=== PATIENT | female | born 1990 | race Hispanic/Latino ===

== ENCOUNTER 2017-09-15 23:07 | Inpatient (IN) | payer MEDICAID, OTHER ==
[2017-09-15 23:07] VITALS: BMI 27.4
[2017-09-16 00:12] LABS: BASO % 0.7 % (0.0-2.0); EOS # 0.4 K/uL (0.0-0.7); EOS % 5.7 % (0.0-4.0); HEMATOCRIT 42.3 % (34.0-47.0); LYMPH # 3.3 K/uL (1.0-4.3); MEAN CELL VOLUME 90.7 fL (81.0-99.0); MEAN CORPUSCULAR HEMOGLOBIN 30.2 pg (27.0-31.0); MEAN CORPUSCULAR HGB CONC 33.3 g/dL (33.0-37.0); MEAN PLATELET VOLUME 8.4 fL (7.2-11.7); MONO # 0.4 K/uL (0.0-0.8); MONO % 6.4 % (0.0-10.0); NRBC % 0.1 % (0.0-2.0); WHITE BLOOD COUNT 6.9 K/uL (4.8-10.8)
[2017-09-16 00:17] LABS: RBC URINE < 1 /hpf (0-3); URINE BILIRUBIN NEGATIVE (NEGATIVE); URINE BLOOD NEGATIVE (NEGATIVE); URINE COLOR Yellow (YELLOW); URINE GLUCOSE (UA) NORMAL (Normal); URINE KETONE NEGATIVE (NEGATIVE); URINE LEUKOCYTE ESTERASE NEG Leu/uL (Negative); URINE PROTEIN NEGATIVE (NEGATIVE); WBC URINE < 1 /hpf (0-5)
[2017-09-16 00:27] LABS: ALB/GLOB RATIO 1.4 (1.0-2.1); ALCOHOL SERUM < 10 mg/dl (0-10); ALKALINE PHOSPHATASE 77 U/L (38-126); ALT/SGPT 37 U/L (9-52); AST/SGOT 23 U/L (14-36); BILIRUBIN,TOTAL 0.6 mg/dL (0.2-1.3); BLOOD UREA NITROGEN 11 mg/dL (7-17); CALCIUM 8.9 mg/dl (8.6-10.4); CARBON DIOXIDE 24 mmol/L (22-30); CHLORIDE 105 mmol/L (98-107); GFR AFRICAN-AMERICAN > 60; GLUCOSE,RANDOM 80 mg/dL (65-105); POTASSIUM 3.9 mmol/L (3.6-5.2); SODIUM 141 mmol/L (132-148); TOTAL PROTEIN 7.5 g/dL (6.3-8.3)
--- NOTE | 2017-09-16 00:35 | C.PDOC ---
History Of Present Illness Pt is here requesting detox from Heroin and Xanax. Time Seen by Provider: 09/15/17 23:31 Chief Complaint (Nursing): Substance Abuse History Per: Patient Onset/Duration Of Symptoms: Days Current Symptoms Are (Timing): Still Present Suicide/Self Injury Attempted (Context): None Modifying Factor(s): Narcotics Severity: Moderate Associated Symptoms: denies: Suicidal Thoughts, Suicidal Plan Additional History Per: Prior Records Past Medical History Reviewed: Historical Data, Nursing Documentation, Vital Signs Vital Signs: Last Vital Signs Temp 97.9 F 09/15/17 23:26 Pulse 76 09/15/17 23:26 Resp 14 09/15/17 23:26 BP 107/74 09/15/17 23:26 Pulse Ox 97 09/16/17 00:47 - Medical History PMH: Anxiety, Seizures (withdrawal) - [facility] Procedures CLOSURE SKIN & SUBCUTANEOUS NEC (08/27/06) INJECT/INFUSE NEC (02/01/15) Family History: States: Unknown Family Hx - Social History Hx Tobacco Use: No Hx Alcohol Use: No Hx Substance Use: Yes (Xanax. Snorts Heroin.) - Immunization History Hx Tetanus Toxoid Vaccination: Yes Hx Influenza Vaccination: Yes Hx Pneumococcal Vaccination: Yes Review Of Systems Except As Marked, All Systems Reviewed And Found Negative. Constitutional: Negative for: Fever, Weakness Cardiovascular: Negative for: Chest Pain Respiratory: Negative for: Shortness of Breath Gastrointestinal: Negative for: Vomiting, Abdominal Pain Musculoskeletal: Negative for: Neck Pain Skin: Negative for: Rash Neurological: Negative for: Weakness, Numbness, Seizures Physical Exam - Physical Exam Appears: Non-toxic, No Acute Distress Skin: Normal Color, Warm, Dry, No Rash Head: Atraumatic, Normacephalic Eye(s): bilateral: PERRL, EOMI Neck: Normal ROM, Supple Cardiovascular: Rhythm Regular Respiratory: Normal Breath Sounds, No Accessory Muscle Use Gastrointestinal/Abdominal: Soft, No Tenderness Extremity: Normal ROM Neurological/Psych: Oriented x3, Normal Motor, Normal Sensation ED Course And Treatment - Laboratory Results Result Diagrams: 09/16/17 00:09 09/16/17 00:09 Lab Interpretation: No Acute Changes Urine POC: Negative O2 Sat by Pulse Oximetry: 97 Pulse Ox Interpretation: Normal Progress Note: Pt is medically cleared for detox admission. Disposition - Disposition Disposition Time: 00:50 Condition: STABLE - Clinical Impression Clinical Impression: Heroin dependence, Benzodiazepine dependence Physician Patient Turnover Patient Signed Over To: Rommel Schwarz Handoff Comments: Pending disposition.
--- NOTE | 2017-09-16 02:22 | PCM.BM ---
<Sonali Rios M - Last Filed: 09/16/17 02:21> Treatment Plan Problems - Problems identified on initial assessmt Ineffective Coping Skills Date Initiated: 09/16/17 Time Initiated: 02:21 Assessment reference: NA Status: Active Treatment assets and liabiliti Patient Assests: ADL independent Patient Liabilities: substance abuse - Milieu Protocol Maintain good personal hygiene: daily Encourage regular showers, daily Remind patient to perform daily oral care, other Assist patient to perform ADL's Maintain personal safety: every shift Educate patient to report safety concerns to staff, every shift Monitor environment for contraband/sharps Medication safety: Monitor for expected outcome, potential side effects: every shift, Assess barriers to learning: every shift, Assess readiness for medication education: every shift <Kerry Cazares - Last Filed: 09/16/17 10:14> - Diagnosis (1) Benzodiazepine dependence Status: Acute Interventions: 09/16/17 10:14 * Assess 7x/week regarding severity of withdrawal * Educate regarding risks, benefits, side effects and alternatives of medications * Use Motivational Interviewing for abstinence * Use CBT for relapse prevention * Medication management for withdrawal symptoms * Encourage medication assisted treatment * (2) Heroin dependence Status: Acute Interventions: 09/16/17 10:14 * Assess 7x/week regarding severity of withdrawal * Educate regarding risks, benefits, side effects and alternatives of medications * Use Motivational Interviewing for abstinence * Use CBT for relapse prevention * Medication management for withdrawal symptoms * Encourage medication assisted treatment *
[2017-09-16] MEDS ORDERED: Buprenorphine Hydrochloride 2 mg SL ONE ×2 (11:00→12:30)
[2017-09-16] MEDS: Multiple Vitamins Tab PO SCH (11:35)
--- NOTE | 2017-09-16 14:55 | PCM.PSYCH ---
Initial Psychiatric Evaluation - Initial Psychiatric Evaluation Type of Admission: Voluntary Legal Status: Capacity Chief Complaint (in patient's own words): "I feel lousy and I did not sleep too good" History of Present Illness and Precipitating Events: Pt is a 27 y/o single female with no children. She is unemployed since the of her 21 y/o sister 1 month ago. This was a major stressor and her family is still waiting the results of the medical autopsy. Pt is here for opioid detox. Pt stated that she is starting to experience opioid wdw sxs. Pt snorts 5 bags of heroin a day for the past year. She has been using heroin for 4 year with a period of 2 year sobriety in those 4 years. Pt smokes marijuana daily since she was 14 with a period of 2 year sobriety coinciding with her heroin sobriety. Pt uses 3 mg of Xanax a day since she was 17 with the same 2 year period of sobriety as heroin and marijuana. Pt does not smoke cigarettes. Pt states the she rarely drinks alcohol or uses cocaine. Pt has attended AA meetings in the past and this her first detox. She has attended rehab in 2011 which was the beginning of her 2 year sobriety from above mentioned substances. Past MHX: denies Family Psychiatric HX: Mother used heroin, sister was depressed Current Medications: Active Medications Generic Name Dose Route Start Last Admin Trade Name Freq PRN Reason Stop Dose Admin Buprenorphine HCl 8 mg 09/17/17 10:00 Subutex SL 09/21/17 09:59 .TAPER [place] Taper Chlordiazepoxide 25 mg 09/16/17 06:00 09/16/17 11:37 Librium PO 09/20/17 05:59 25 mg Q6 [place] Administration Taper Chlordiazepoxide 25 mg 09/16/17 10:19 Librium PO Q4H PRN Alcohol Withdrawal Clonidine HCl 0.1 mg 09/16/17 01:41 Catapres PO Q8 PRN COWS Score More or Equal to 5 Dicyclomine HCl 10 mg 09/16/17 01:41 Bentyl PO Q6 PRN Muscle spasm Hydroxyzine HCl 25 mg 09/16/17 01:41 Atarax PO Q6 PRN Anxiety Ibuprofen 400 mg 09/16/17 01:45 09/16/17 05:58 Motrin Tab PO 400 mg Q6H PRN Administration Pain, moderate (4-7) Loperamide HCl 2 mg 09/16/17 01:41 Imodium PO Q8 PRN Diarrhea Multivitamins 1 tab 09/16/17 10:30 09/16/17 11:35 Hexavitamin PO 1 tab DAILY [place] Administration Ondansetron HCl 4 mg 09/16/17 01:41 Zofran Tab PO Q8 PRN Nausea/Vomiting Trazodone HCl 50 mg 09/16/17 10:19 Desyrel PO HS PRN Insomnia Past Psychiatric History - Past Psychiatric History Previous Treatment History: None Pertinent Medical Hx (Current Medical&Sleep Prob, Allergies): Allergies Allergy/AdvReac Type Severity Reaction Status Date / Time No Known Allergies Allergy Verified 09/15/17 23:28 Review of Systems - Neurological Neurological: UNREMARKABLE - Psychiatric Psychiatric: Abnormal Sleep Pattern, Change in Appetite, Depression, Difficulty Concentrating. absent: Hallucinations, Homicidal Ideation, Suicidal Ideation Mental Status Examination - Personal Presentation Personal Presentation: Looks stated age - Affect Affect: Constricted - Motor Activity Motor Activity: Calm - Reliability in Providing Information Reliability in Providing Information: Good - Speech Speech: Organized - Mood Mood: Depressed - Formal Thought Process Formal Thought Process: No Impairment - Cognitive Functions Orientation: Person, Place, Situation, Time Sensorium: Alert Attention/Concentration: Attentive Judgement: Intact, as evidence by: Insight regarding need for hospitalization Memory: Recent intact, as evidence by: Ability to recall events of the day, Remote intact, as evidenced by: Ability to recall historical events - Risk Risk: Seizure, Withdrawal, Diminished functioning - Strength & Assets Inventory Strength & Assets Inventory: Family support, Cooperative - Limitations Limitations: Other DSM 5 DX - DSM 5 DSM 5 Diagnosis: Opioid Withdrawal Opioid Use d/o - severe Cannabis use d/o- severe 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
--- NOTE | 2017-09-17 07:28 | PCM.PYCHPN ---
Psychiatric Progress Note - Psychiatric Progress Note Patient seen today, length of contact: 15 min Patient Chief Complaint: I am feeling little better.' Problems Identified/Issues Discussed: Patient seen and evaluated, chart reviewed and discussed with the nurse. Patient still reports withdrawal symptoms including nausea, headaches, cramps and sweating. She reports irritable mood but denies any feelings of hopelessness and helplessness. She denies any SI/HI/AVH. She is taking medication and denies any side effects. She needs more time for stabilization. Supportive therapy and psychoeducation were given. Medication Change: Yes (subutex taper, librium taper) Medical Record Reviewed: Yes Mental Status Examination - Cognitive Function Orientation: Person, Place, Situation, Time Memory: Intact Attention: WNL Concentration: Poor Association: WNL Fund of Knowledge: Poor - Mood Mood: Depressed - Affect Affect: Constricted - Speech Speech: Soft - Formal Thought Process Formal Thought Process: No Impairment - Suicidal Ideation Suicidal Ideation: No - Homicidal Ideation Homicidal Ideation: No Goal/Treatment Plan - Goal/Treatment Plan Need for Continued Stay: Severe depression anxiety, Severe functional impairment Progress Toward Problem(s) and Goals/Treatment Plan: Opioid Withdrawal Opioid Use d/o - severe Cannabis use d/o- severe 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
[2017-09-17] MEDS: Multiple Vitamins Tab PO SCH (09:28)
[2017-09-17] MEDS: Buprenorphine Hydrochloride 2 mg SL SCH (09:28)
--- NOTE | 2017-09-18 09:10 | PCM.PYCHPN ---
Psychiatric Progress Note - Psychiatric Progress Note Patient seen today, length of contact: 15 min Patient Chief Complaint: I am feeling little better.' Problems Identified/Issues Discussed: Patient seen and evaluated, chart reviewed and discussed with the nurse. Staff reports pt is improving. No acute events. Patient reports improvement in the withdrawal symptoms. She reports anxiety but denies any feelings of hopelessness and helplessness. She denies any SI/HI/AVH. She is taking medication and denies any side effects. She needs more time for stabilization. Supportive therapy and psychoeducation were given. Medication Change: Yes (librium and subutex taper) Medical Record Reviewed: Yes Mental Status Examination - Cognitive Function Orientation: Person, Place, Situation, Time Memory: Intact Attention: WNL Concentration: WNL Association: WNL Fund of Knowledge: Poor - Mood Mood: Depressed - Affect Affect: Constricted - Speech Speech: Soft - Formal Thought Process Formal Thought Process: No Impairment - Suicidal Ideation Suicidal Ideation: No - Homicidal Ideation Homicidal Ideation: No Goal/Treatment Plan - Goal/Treatment Plan Need for Continued Stay: Severe depression anxiety, Severe functional impairment Progress Toward Problem(s) and Goals/Treatment Plan: Opioid Withdrawal Opioid Use d/o - severe Cannabis use d/o- severe 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
[2017-09-18] MEDS: Buprenorphine Hydrochloride 2 mg SL SCH (09:54)
[2017-09-18] MEDS: Multiple Vitamins Tab PO SCH (10:43)
[2017-09-19] MEDS: Buprenorphine Hydrochloride 2 mg SL SCH (09:21)
[2017-09-19] MEDS: Multiple Vitamins Tab PO SCH (09:22)
--- NOTE | 2017-09-19 13:17 | PCM.PYCHPN ---
Psychiatric Progress Note - Psychiatric Progress Note Patient seen today, length of contact: 15 min Patient Chief Complaint: "I am a bit better" Problems Identified/Issues Discussed: The pt is seen, chart reviewed, case discussed with staff. Support given, CBT and [place] used briefly No new symptoms reported, improving slowly and needs more time No SEs from medications, risks discussed. After care discussed - IOP Medication Change: Yes (librium and subutex taper) Medical Record Reviewed: Yes Mental Status Examination - Cognitive Function Orientation: Person, Place, Situation, Time Memory: Intact Attention: WNL Concentration: WNL Association: WNL Fund of Knowledge: Poor - Mood Mood: Depressed - Affect Affect: Constricted - Speech Speech: Soft - Formal Thought Process Formal Thought Process: No Impairment - Suicidal Ideation Suicidal Ideation: No - Homicidal Ideation Homicidal Ideation: No Goal/Treatment Plan - Goal/Treatment Plan Need for Continued Stay: Severe depression anxiety, Severe functional impairment Progress Toward Problem(s) and Goals/Treatment Plan: Subutex, Librium detox Gabapentin for augmentation As needed medications Attend groups and activities Supportive therapy and psychoeducation [place] for abstinence CBT for relapse prevention Encourage MAT Refer to rehab or IOP, and self-help groups Pt staes the she is open to Short-term rehab after discharge Discuss grief groups with patient in light of sister's
[2017-09-19] MEDS ORDERED: Magnesium Hydroxide Susp 30 ml UD PO ONE (13:31)
[2017-09-20] MEDS: Multiple Vitamins Tab PO SCH (09:22)
[2017-09-20] MEDS: Buprenorphine Hydrochloride 2 mg SL SCH (09:22)
[2017-09-20 11:45] VITALS: RESP 18
--- NOTE | 2017-09-20 12:31 | PCM.PYCHPN ---
Psychiatric Progress Note - Psychiatric Progress Note Patient seen today, length of contact: 16 min Patient Chief Complaint: "I am anxious" Problems Identified/Issues Discussed: The pt is seen, chart reviewed, case discussed with staff. The pt is compliant with medications and reports no side-effects. Symptoms are improving but needs more time to stabilize. After care discussed, support and psychoeducation given. She is waiting to hear from [facility] Medication Change: Yes (librium and subutex taper) Medical Record Reviewed: Yes Mental Status Examination - Cognitive Function Orientation: Person, Place, Situation, Time Memory: Intact Attention: WNL Concentration: WNL Association: WNL Fund of Knowledge: Poor - Mood Mood: Depressed - Affect Affect: Constricted - Speech Speech: Soft - Formal Thought Process Formal Thought Process: No Impairment - Suicidal Ideation Suicidal Ideation: No - Homicidal Ideation Homicidal Ideation: No Goal/Treatment Plan - Goal/Treatment Plan Need for Continued Stay: Severe depression anxiety, Severe functional impairment Progress Toward Problem(s) and Goals/Treatment Plan: Subutex, Librium detox ending Gabapentin for augmentation As needed medications Attend groups and activities Supportive therapy and psychoeducation [place] for abstinence CBT for relapse prevention Encourage MAT Refer to rehab or IOP, and self-help groups Pt staes the she is open to Short-term rehab after discharge Discuss grief groups with patient in light of sister's Estimated Date of D/C: 09/21/17
[2017-09-21 06:35] VITALS: PULSE 83
--- NOTE | 2017-09-21 08:44 | PCM.PYCHDC ---
Mental Status Examination - Mental Status Examination Orientation: Person Discharge Summary - Discharge Note Consultations:: List each consultation separately and include: 1. Reason for request. 2. Findings. 3. Follow-up Summary of Hospital Course include:: 1. Description of specific treatment plan utilized for patients during their course of treatmen. 2. Summarize the time- course for resolution of acute symptoms and/or regressed behaviors. 3. Describe issues identified and worked on during hospitalization. 4. Describe medication utilized. 5. Describe medical problems identified and treated. 6. Reassessment of suicide risk Summary of Hospital Course: Pt is a 27 y/o single female with no children. She is unemployed since the of her 21 y/o sister 1 month ago. This was a major stressor and her family is still waiting the results of the medical autopsy. Pt is here for opioid detox. Pt stated that she is starting to experience opioid wdw sxs. Pt snorts 5 bags of heroin a day for the past year. She has been using heroin for 4 year with a period of 2 year sobriety in those 4 years. Pt smokes marijuana daily since she was 14 with a period of 2 year sobriety coinciding with her heroin sobriety. Pt uses 3 mg of Xanax a day since she was 17 with the same 2 year period of sobriety as heroin and marijuana. Pt does not smoke cigarettes. Pt states the she rarely drinks alcohol or uses cocaine. Pt has attended AA meetings in the past and this her first detox. She has attended rehab in 2011 which was the beginning of her 2 year sobriety from above mentioned substances. Past MHX: denies Family Psychiatric HX: Mother used heroin, sister was depressed - Diagnosis (1) Benzodiazepine dependence Current Visit: Yes Status: Acute (2) Heroin dependence Current Visit: Yes Status: Acute - Final Diagnosis (DSM 5) Condition upon Discharge: STABLE Disposition: HOME/ ROUTINE Follow-up Treatment Plan: Subutex, Librium detox ending Gabapentin for augmentation As needed medications Attend groups and activities Supportive therapy and psychoeducation [place] for abstinence CBT for relapse prevention Encourage MAT Refer to rehab or IOP, and self-help groups Pt staes the she is open to Short-term rehab after discharge Discuss grief groups with patient in light of sister's
[2017-09-21] MEDS: Multiple Vitamins Tab PO SCH (09:54)
[2017-09-21 12:22] VITALS: BP 107/73; TEMP 98; O2SAT 98
== END 2017-09-21 11:45 | disposition home or self-care (01) | DRG 745 ==
LOC: C.ER 23:07 → C.7D 09-16 01:39
PROVIDERS: ADMIT Psychiatry & Neurology Psychiatry; ATTEND Psychiatry & Neurology Psychiatry
PROC: HZ2ZZZZ Detoxification Services for Substance Abuse Treatment (ICD-10-PCS; principal; 2017-09-16)
PROC: GZ56ZZZ Individual Psychotherapy, Supportive (ICD-10-PCS; 2017-09-16)
DX: F11.23 Opioid dependence with withdrawal (principal); F19.20 Other psychoactive substance dependence, uncomplicated; F12.90 Cannabis use, unspecified, uncomplicated; F41.9 Anxiety disorder, unspecified